=== PATIENT | male | born 1980 | race American Indian/Alaskan Native ===

== ENCOUNTER 2016-11-03 01:44 | Emergency (ER) | payer MEDICAID ==
[2016-11-03] MEDS ORDERED: MAGNESIUM SULFATE 2GM/50ML 2 GM/50 ML BAG IV ONE ×2 (02:00→02:38)
[2016-11-03] MEDS ORDERED: PROVENTIL IH ONE ×3 (02:01→03:38)
[2016-11-03] MEDS ORDERED: DUONEB 0.5 MG-3 MG/3 ML SOLN IH ONE (02:01)
--- NOTE | 2016-11-03 02:42 | Emergency Department Report ---
HPI - General Chief Complaint: Dyspnea/Respdistress Time Seen by Provider: 11/03/16 02:26 - HPI HPI: Room 1 The patient is a 36-year-old male presenting with a chief complaint of shortness of breath. The patient states for 1 week is shortness of breath consistent with his asthma exacerbations. The patient states he has been using his nebulizer and MDI at home with has been no improvement. The patient states today he ran out of medication for his nebulizer and ran out of his inhaler. Patient denies a cough or fever. Patient denies any recent steroid use. Location: Lungs Duration: One week Quality: Consistent with asthma Severity: Moderate Modifying factors: [see above] Context: [see above] Mode of transportation: Unknown ED Past Medical Hx - Past Medical History Previous Medical History?: Yes Hx Asthma: Yes - Surgical History Past Surgical History?: No - Family History Family history: no significant - Social History Smoking Status: Never Smoker Substance Use Type: None - Medications Home Medications: Home Medications Medication Instructions Recorded Confirmed Last Taken Type ALBUTEROL Inhaler [ProAir HFA 2 puff IH QID PRN #1 inhalation 11/03/16 Unknown Rx Inhaler] Albuterol Sulfate [Albuterol 0.63% 0.63 mg IH TID PRN #90 ml 11/03/16 Unknown Rx NEBS] Prednisone [predniSONE 10 mg 10 mg PO .TAPER #1 tab.ds.pk 11/03/16 Unknown Rx (6-Day Pack, 21 Tabs)] ED Review of Systems ROS: Stated complaint: ASTHMA Other details as noted in HPI Comment: All other systems reviewed and negative Constitutional: denies: chills, fever Eyes: denies: eye pain, eye discharge, vision change ENT: as per HPI Respiratory: shortness of breath, wheezing. denies: cough Cardiovascular: denies: chest pain, palpitations Endocrine: no symptoms reported Gastrointestinal: denies: abdominal pain, nausea, diarrhea Genitourinary: denies: urgency, dysuria Musculoskeletal: denies: back pain, joint swelling, arthralgia Skin: denies: rash, lesions Neurological: denies: headache, weakness, paresthesias Psychiatric: denies: anxiety, depression Hematological/Lymphatic: denies: easy bleeding, easy bruising Physical Exam - Physical Exam Vital Signs: Vital Signs 05/01/17 05/01/17 01:55 02:09 Temperature 98.1 F Pulse Rate 116 H Pulse Rate [ 109 H Throughout] Respiratory 18 Rate Respiratory 24 Rate [ Throughout] Blood Pressure 156/84 O2 Sat by Pulse 99 Oximetry Physical Exam: GENERAL: The patient is well-developed well-nourished male lying on stretcher not appearing to be in acute distress. [] HEENT: Normocephalic. Atraumatic. Extraocular motions are intact. Patient has moist mucous membranes. NECK: Supple. Trachea midline CHEST/LUNGS: Tight wheezing throughout severely diminished.. There is no respiratory distress noted however. HEART/CARDIOVASCULAR: Regular. There is tachycardia. There is no gallop rub or murmur. ABDOMEN: Abdomen is soft, nontender. Patient has normal bowel sounds. There is no abdominal distention. SKIN: There is no rash. There is no diaphoresis. NEURO: The patient is awake, alert, and oriented. The patient is cooperative. The patient has normal speech MUSCULOSKELETAL: There is no evidence of acute injury. ED Course Vital Signs 11/03/16 11/03/16 01:55 02:09 Temperature 98.1 F Pulse Rate 116 H Pulse Rate [ 109 H Throughout] Respiratory 18 Rate Respiratory 24 Rate [ Throughout] Blood Pressure 156/84 O2 Sat by Pulse 99 Oximetry - Reevaluation(s) Reevaluation #1: 11/03/16 04:42 Patient resting comfortably on bed using cell phone. Lungs clear to auscultation. Patient states he feels better ED Medical Decision Making - Lab Data Result diagrams: 11/03/16 01:50 11/03/16 01:50 Laboratory Tests 11/03/16 11/03/16 01:50 01:50 WBC 6.9 RBC 5.19 H Hgb 14.9 Hct 44.9 MCV 87 MCH 29 MCHC 33 RDW 14.1 Plt Count 281 Lymph % (Auto) 39.0 H [place] % (Auto) 7.6 H Eos % (Auto) 2.9 Baso % (Auto) 0.7 Lymph # 2.7 [place] # 0.5 Eos # 0.2 Baso # 0.0 Seg Neutrophils % 49.8 Seg Neutrophils # 3.4 Sodium 144 Potassium 3.7 Chloride 102.8 Carbon Dioxide 27 Anion Gap 18 BUN 14 Creatinine 1.2 Estimated GFR > 60 BUN/Creatinine Ratio 11.66 Glucose 150 H Calcium 8.9 Troponin T < 0.010 - EKG Data -: EKG Interpreted by Me EKG shows normal: sinus rhythm Rate: tachycardia (113 bpm) - EKG Data When compared to previous EKG there are: previous EKG unavailable Interpretation: other (no ischemic changes seen) - Radiology Data Radiology results: image reviewed (chest x-ray) interpreted by me: Chest x-ray-right lower lobe atelectasis. No definite focal infiltrates or pneumothorax - Differential Diagnosis acute asthma exacerbation, pneumonia Critical care attestation.: If time is entered above; I have spent that time in minutes in the direct care of this critically ill patient, excluding procedure time. ED Disposition Clinical Impression: Acute asthma exacerbation, Difficulty breathing Disposition: DISCHARGED TO HOME OR SELFCARE Is pt being admited?: No Does the pt Need Aspirin: No Condition: Stable Instructions: Asthma (ED) Additional Instructions: Return to the emergency department immediately should you develop worsening symptoms, fever, inability to tolerate food or liquid or any other concerns. Prescriptions: ALBUTEROL Inhaler [ProAir HFA Inhaler] 2 puff IH QID PRN #1 inhalation PRN Reason: Shortness Of Breath Albuterol Sulfate [Albuterol 0.63% NEBS] 0.63 mg IH TID PRN #90 ml PRN Reason: Wheezing Prednisone [predniSONE 10 mg (6-Day Pack, 21 Tabs)] 10 mg PO .TAPER #1 tab.ds.pk Referrals: PRIMARY CARE, [Primary Care Provider] - 3-5 Days FELI ANAYA MD [Staff Physician] - 3-5 Days (Dr. Anaya is her [employer]. Please follow up with him to be established as a patient) Time of Disposition: 04:44
[2016-11-03 02:57] LABS: Basophils % (Auto) 0.7 % (0.0-1.8); Eosinophils % (Auto) 2.9 % (0.0-4.3); Hematocrit 44.9 % (35.5-45.6); Hemoglobin 14.9 gm/dl (11.8-15.2); Mean Corpuscular HGB Conc 33 % (32-34); Mean Corpuscular Hemoglobin 29 pg (28-32); Mean Corpuscular Volume 87 fl (84-94); Platelet Count 281 K/mm3 (140-440); Red Blood Count 5.19 M/mm3 (3.65-5.03); Red Cell Distribution Width 14.1 % (13.2-15.2); White Blood Count 6.9 K/mm3 (4.5-11.0)
[2016-11-03 03:33] LABS: Anion Gap 18 mmol/L; BUN/Creatinine Ratio 11.66; Blood Urea Nitrogen 14 mg/dL (9-20); Calcium 8.9 mg/dL (8.4-10.2); Carbon Dioxide 27 mmol/L (22-30); Chloride 102.8 mmol/L (98-107); Glucose 150 mg/dL (75-100); Potassium 3.7 mmol/L (3.6-5.0); Sodium 144 mmol/L (137-145)
[2016-11-03] MEDS ORDERED: ATROVENT IH ONE ×2 (03:36→03:38)
[2016-11-03 06:12] VITALS: BP 170/101
--- NOTE | 2016-11-03 09:09 | XRay Report ---
AP CHEST: HISTORY: Shortness of breath AP view of the chest demonstrates a normal mediastinal and cardiac contour with clear lungs and normal bony and soft tissue structures. IMPRESSION: Unremarkable AP chest.
== END 2016-11-03 04:30 | disposition home or self-care (01) ==
LOC: ED 01:44
DX: J45.901 Unspecified asthma with (acute) exacerbation (principal)
CPT/HCPCS: 36415; 71010; 80048; 84484; 85025; 93005; 93010; 94644; 96365; 96375; 99284; J2930; J3475; 94640

== ENCOUNTER 2016-12-08 23:38 | Emergency (ER) | payer MEDICAID ==
[~2016-12-08 23:38] MED LIST: PROVENTIL IH ONE
[2016-12-09] MEDS ORDERED: PROVENTIL IH ONE (00:06)
[2016-12-09 01:09] VITALS: BP 137/96
== END 2016-12-09 01:17 | disposition left against medical advice (07) ==
LOC: ED 23:38
DX: J45.909 Unspecified asthma, uncomplicated (principal); Z53.21 Procedure and treatment not carried out due to patient leaving prior to being seen by health care provider
CPT/HCPCS: 94640